=== PATIENT | male | born 1965 | race Caucasian/White ===

== ENCOUNTER 2016-10-29 18:39 | Emergency (ER) | payer SELFPAY ==
[~2016-10-29] VITALS: Ht 177.8 cm; Wt 80.8 kg
[2016-10-29 18:44] VITALS: BP 141/100; PULSE 141; RESP 16; TEMP 98.1; O2SAT 96
[2016-10-29] MEDS ORDERED: GLIP5TAB8 PO (18:55)
[2016-10-29 19:25] VITALS: BP 125/93; PULSE 120; O2SAT 97
[2016-10-29] MEDS ORDERED: MORPHINE SULFATE 4 MG/ML INJ IV PUSH ONE (19:30)
[2016-10-29] MEDS ORDERED: ONDANSETRON HCL 4 MG/2 ML VIAL IV PUSH ONE (19:30)
[2016-10-29] MEDS ORDERED: KETOROLAC TROMETHAMINE 30 MG/ML (IVP) VIAL IV PUSH ONE (19:30)
[2016-10-29 20:15] VITALS: BP 126/83; PULSE 112; O2SAT 97
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
--- NOTE | 2016-10-29 20:23 | RADHPO ---
EXAM DATE/TIME: 10/29/2016 19:45 [facility] COMPARISON: No previous studies available for comparison. INDICATIONS : Chest and back pain for 4 days. MEDICAL HISTORY : Diabetes mellitus type II. SURGICAL HISTORY : None. ENCOUNTER: Initial ACUITY: 4 - 6 days PAIN SCORE: 8/10 LOCATION: Bilateral posterior chest. FINDINGS: The lungs are clear without infiltrate, nodule, or mass except for minimal linear atelectasis and/or scar left lung base. There is no appreciable pleural effusion for technique. Heart and mediastinum are unremarkable. CONCLUSION: No acute cardiopulmonary disease. Adolfo Burr MD on October 29, 2016 at 20:20 Board Certified Radiologist. This report was verified electronically.
--- NOTE | 2016-10-29 21:08 | RADHPO ---
EXAM DATE/TIME: 10/29/2016 19:58 [facility] COMPARISON: No previous studies available for comparison. INDICATIONS : Upper back pain for one week. RADIATION DOSE: 38.84 CTDIvol (mGy) ; Combined studies - Thoracic Spine/Lumbar Spine MEDICAL HISTORY : Diabetes mellitus type 2. Renal calculi. SURGICAL HISTORY : None. ENCOUNTER: Initial ACUITY: 1 week PAIN SCALE: 8/10 LOCATION: Upper back. TECHNIQUE: Volumetric scanning of the thoracic spine was performed. Multiplanar reconstructions in the sagittal , coronal and oblique axial planes were performed. Using automated exposure control and adjustment o f the mA and/or kV according to patient size, radiation dose was kept as low as reasonably achievable to obtain optimal diagnostic quality images. FINDINGS: No significant compression deformities are seen. Disc spaces are grossly intact and not significantl y narrowed. T1-T2: No appreciable compromise to the thecal sac, spinal cord, or the exiting nerve roots are seen. The neural foramina are grossly patent bilaterally. T2-T3: No appreciable compromise to the thecal sac, spinal cord, or the exiting nerve roots are seen. The neural foramina are grossly patent bilaterally. T3-T4: No appreciable compromise to the thecal sac, spinal cord, or the exiting nerve roots are seen. The neural foramina are grossly patent bilaterally. T4-T5: No appreciable compromise to the thecal sac, spinal cord, or the exiting nerve roots are seen. The neural foramina are grossly patent bilaterally. T5-T6: No appreciable compromise to the thecal sac, spinal cord, or the exiting nerve roots are seen. The neural foramina are grossly patent bilaterally. T6-T7: No appreciable compromise to the thecal sac, spinal cord, or the exiting nerve roots are seen. The neural foramina are grossly patent bilaterally. T7-T8: No appreciable compromise to the thecal sac, spinal cord, or the exiting nerve roots are seen. The neural foramina are grossly patent bilaterally. T8-T9: No appreciable compromise to the thecal sac, spinal cord, or the exiting nerve roots are seen. The neural foramina are grossly patent bilaterally. T9-T10: No appreciable compromise to the thecal sac, spinal cord, or the exiting nerve roots are see n. The neural foramina are grossly patent bilaterally. T10-T11: No appreciable compromise to the thecal sac, spinal cord, or the exiting nerve roots are se en. The neural foramina are grossly patent bilaterally. T11-T12: No appreciable compromise to the thecal sac, spinal cord, or the exiting nerve roots are se en. The neural foramina are grossly patent bilaterally. T12-L1: No appreciable compromise to the thecal sac, spinal cord, or the exiting nerve roots are s een. The neural foramina are grossly patent bilaterally. CONCLUSION: Essentially unremarkable study. Adolfo Burr MD on October 29, 2016 at 21:02 Board Certified Radiologist. This report was verified electronically.
--- NOTE | 2016-10-29 21:12 | RADHPO ---
EXAM DATE/TIME: 10/29/2016 19:58 [facility] COMPARISON: No previous studies available for comparison. INDICATIONS : Lower back pain for one week. RADIATION DOSE: 38.84 CTDIvol (mGy) ; Combined studies - Thoracic Spine/Lumbar Spine MEDICAL HISTORY : Diabetes mellitus type 2. SURGICAL HISTORY : None. ENCOUNTER: Initial ACUITY: 1 week PAIN SCALE: 8/10 LOCATION: Lower back. TECHNIQUE: Volumetric scanning of the lumbar spine was performed. Multiplanar reconstructions in the sagittal, coronal and oblique axial planes were performed. Using automated exposure control and adjustment of the mA and/or kV according to patient size, radiation dose was kept as low as reasonably achievable t o obtain optimal diagnostic quality images. FINDINGS: No significant compression deformities, spondylolysis or spondylolisthesis is seen. T12-L1: There is no evidence for any significant compromise to the thecal sac, or the exiting nerve roots. N o appreciable thecal sac stenosis is seen. The neural foramina and lateral recess appear patent bila terally. L1-L2: There is bulging disc and hypertrophic change protruding into the right lateral recess without any si gnificant compromise to the exiting nerve roots. Slight bulging disc and hypertrophic changes are see n with indentation on the thecal sac and no significant compromise to the thecal sac or the exiting n erve roots. L2-L3: Slight bulging disc is present with minimal extension into bilateral neural foramina. No significant compromise to the thecal sac or the exiting nerve roots are seen. L3-L4: Slight bulging disc is present with minimal extension into bilateral neural foramina. No significant compromise to the thecal sac or the exiting nerve roots are seen. L4-L5: Slight bulging disc is present with minimal extension into bilateral neural foramina. No significant compromise to the thecal sac or the exiting nerve roots are seen. L5-S1: Slight bulging disc and hypertrophic changes are seen with indentation on the thecal sac and no signi ficant compromise to the thecal sac or the exiting nerve roots. CONCLUSION: Degenerative changes as above without any significant compromise to the thecal sac or the exiting ner ve roots. Adolfo Burr MD on October 29, 2016 at 21:06 Board Certified Radiologist. This report was verified electronically.
[2016-10-29] MEDS ORDERED: ROBA750T PO (21:21)
[2016-10-29] MEDS ORDERED: ULTR50TA5 PO (21:21)
[2016-10-29] MEDS ORDERED: MOBI15TA PO (21:21)
== END 2016-10-29 21:36 | disposition home or self-care (01) ==
LOC: PHED 18:39
DX: S29.012A Strain of muscle and tendon of back wall of thorax, initial encounter (principal); S39.012A Strain of muscle, fascia and tendon of lower back, initial encounter; E11.9 Type 2 diabetes mellitus without complications; X58.XXXA Exposure to other specified factors, initial encounter
CPT/HCPCS: 71010; 72128; 72131; 96374; 96375; 99284; J1885; J2270; J2405